=== PATIENT | male | born 1965 | race Caucasian/White ===

== ENCOUNTER 2023-02-11 00:12 | Emergency (ER) | payer BC, SELFPAY ==
[2023-02-11 00:15] VITALS: BP 127/76; PULSE 79; RESP 18; TEMP 36.5; O2SAT 100
[2023-02-11 00:39] VITALS: BP 129/73; PULSE 82; RESP 14; TEMP 36.4; O2SAT 97
--- NOTE | 2023-02-11 00:43 | PC.NURSE ---
Patient presents with redness to all toes on his right foot. Patient states that the pain is mostly a burning pain and rates it as a 1/10 right now.
[2023-02-11 01:14] VITALS: BP 123/78; PULSE 76; RESP 19; O2SAT 98
--- NOTE | 2023-02-11 01:27 | ED.GENADULT ---
HPI - General Adult General Chief complaint: Skin/Abscess/Foreign Body Stated complaint: sent by [employer] doc for r/u DVT foot Time Seen by Provider: 02/11/23 01:26 Source: patient and family ( and mother) Mode of arrival: ambulatory Limitations: no limitations History of Present Illness HPI narrative: 57-year-old male who was sent by telehealth concern blood clot his foot. Patient takes an aspirin occasionally. He did have prolonged driving [facility]. The foot has been having burning and some itching. Friday he did yard work. It was slightly more swollen but this went down with elevation. He experiences some pain between the toes. Noticed the foot was red. No history of diabetes. No known MRSA exposure or risk factors. Related Data Allergies Allergy/AdvReac Type Severity Reaction Status Date / Time No Known Allergies Allergy Verified 02/11/23 00:20 [facility] Social History Social History (Updated 02/11/23 @ 02:03 by Dory Ambrose MD) Living arrangements: with family Additional living arrangements comments: [facility] Exam Narrative: GENERAL: Well-appearing, well-nourished, and in no acute distress. HEAD: Normocephalic, atraumatic. EYES: Non injected, non icteric ENT: Nares clear, no rhinorrhea or epistaxis. NECK: Supple. CHEST: Speaks in complete sentences. No respiratory distress. HEART: Regular rate and rhythm. Palpable 2+ bilateral DP pulses . ABDOMEN: Soft, nondistended. EXTREMITIES: Normal range of motion. 5/5 strength with bilateral ankle dorsiflexion and plantar flexion. SKIN: Warm, dry. Non discrete area of redness overlying dorsum of R foot, slightly warm to the touch, especially when compared to L. [place] without swelling or tenderness. NEURO: No focal deficits. Alert and oriented x3. Sensation intact throughout feet and ankles. PSYCH: Pleasant. Normal mood and affect. Course Vital Signs Vital signs: Vital Signs Temperature 97.7 F 02/11/23 00:15 Pulse Rate 79 02/11/23 00:15 Respiratory Rate 18 02/11/23 00:15 Blood Pressure 127/76 02/11/23 00:15 Pulse Oximetry 100 02/11/23 00:15 Oxygen Delivery Room Air 02/11/23 00:15 Temperature 97.6 F 02/11/23 00:39 Pulse Rate 76 02/11/23 01:14 Respiratory Rate 19 02/11/23 01:14 Blood Pressure 123/78 02/11/23 01:14 Pulse Oximetry 98 02/11/23 01:14 Oxygen Delivery Room Air 02/11/23 00:15 Medical Decision Making MDM Narrative Medical decision making narrative: 57-year-old male sent to the emergency department by tele doc to rule out DVT given concern for right foot swelling and recent long road trip from [place]. On evaluation, patient has an erythematous area overlying the dorsum of right foot that is warm to the touch and has nondiscrete borders. This does appear to be consistent with cellulitis and point care ultrasound is performed which demonstrates classic cobblestoning pattern. No associated abscess. Patient is otherwise neurovascularly intact and has no calf pain or tenderness or swelling. Patient will be given 1st dose of antibiotics given knee is from out of town. He is provided a paper prescription for the rest of the course which he can fill anymore. He is advised to follow up as needed with his primary care physician or to present elsewhere if it worsens. Vital Signs Vital Signs: Vital Signs Temperature 97.7 F 02/11/23 00:15 Pulse Rate 79 02/11/23 00:15 Respiratory Rate 18 02/11/23 00:15 Blood Pressure 127/76 02/11/23 00:15 Pulse Oximetry 100 02/11/23 00:15 Oxygen Delivery Room Air 02/11/23 00:15 Temperature 97.6 F 02/11/23 00:39 Pulse Rate 76 02/11/23 01:14 Respiratory Rate 19 02/11/23 01:14 Blood Pressure 123/78 02/11/23 01:14 Pulse Oximetry 98 02/11/23 01:14 Oxygen Delivery Room Air 02/11/23 00:15 Discharge Plan Discharge Clinical Impression: Cellulitis Qualifiers: Site of cellulitis: extremity Site of cellul
[2023-02-11] MEDS: CEPHALEXIN 500 MG CAPSULE PO (02:05)
[2023-02-11 02:07] VITALS: BP 124/75; PULSE 72; RESP 15; TEMP 36.5; O2SAT 99
== END 2023-02-11 02:17 | disposition home or self-care (01) ==
LOC: ANHED 02:13
PROVIDERS: Emergency Provider Student in an Organized Health Care Education/Training Program
DX: L03.115 Cellulitis of right lower limb (principal)
CPT/HCPCS: 99283; A9270